=== PATIENT | female | born 1980 | race Caucasian/White ===

== ENCOUNTER 2017-12-16 14:14 | Day surgery (SDC) | payer MEDICAID ==
[~2017-12-16] VITALS: Ht 162.6 cm; Wt 86.2 kg
[2017-12-16] VITALS (9 sets, daily range): BP systolic 119–153; BP diastolic 87–99
[2017-12-16 15:16] LABS: BASOPHILS % (AUTO) 0.7 % (0.0-2.0); HEMATOCRIT 39.3 % (37.0-47.0); HEMOGLOBIN 13.2 G/DL (12.0-16.0); LYMPHOCYTES % (AUTO) 27.6 % (20.0-45.0); MEAN CORPUSCULAR VOLUME 93 FL (80-99); MONOCYTES % (AUTO) 6.6 % (1.0-10.0); NEUTROPHILS % (AUTO) 64.1 % (45.0-75.0); PLATELET COUNT 324 K/UL (150-450); RED BLOOD COUNT 4.24 M/UL (4.20-5.40); RED CELL DISTRIBUTION WIDTH 10.9 % (11.6-14.8); WHITE BLOOD COUNT 6.8 K/UL (4.8-10.8)
[2017-12-16 15:21] LABS: INR 0.9 (0.9-1.1)
[2017-12-16 15:22] LABS: ANION GAP 7 mmol/L (5-15); BLOOD UREA NITROGEN 16 mg/dL (7-18); CALCIUM 8.7 MG/DL (8.5-10.1); CARBON DIOXIDE 29 MMOL/L (21-32); CHLORIDE 103 MMOL/L (98-107); CREATININE 0.8 MG/DL (0.55-1.30); POTASSIUM 4.4 MMOL/L (3.5-5.1); SODIUM 139 MMOL/L (136-145)
[2017-12-16 15:27] LABS: ALANINE AMINOTRANSFERASE 43 U/L (12-78); ALBUMIN 3.6 G/DL (3.4-5.0); ALBUMIN/GLOBULIN RATIO 0.9 (1.0-2.7); ALKALINE PHOSPHATASE 69 U/L (46-116); ASPARTATE AMINO TRANSFERASE 22 U/L (15-37); BILIRUBIN,TOTAL 0.3 MG/DL (0.2-1.0)
--- NOTE | 2017-12-16 16:10 | Emergency Room Report ---
History of Present Illness General Chief Complaint: Pain Source: Patient Present Illness HPI 37-year-old female presents ED for evaluation of right wrist pain. Patient states she had her wrist was injured at a [employer] in October. States it is broken. Currently in a splint. Patient is noting tingling and weakness in the right wrist. Pain is throbbing, 8 out of 10, nonradiating. No other aggravating relieving factors. Denies any other associated symptoms Allergies: Coded Allergies: ACETAMINOPHEN (Verified Allergy, Unknown, 12/16/17) CODEINE (Verified Allergy, Unknown, 12/16/17) Patient History Past Medical History: none Past Surgical History: none Pertinent Family History: none Social History: Denies: smoking, alcohol use, drug use Last Menstrual Period: 11/28/17 Now: No Immunizations: UTD Reviewed Nursing Documentation: PMH: Agreed; PSxH: Agreed Nursing Documentation-PMH Past Medical History: No Stated History Review of Systems All Other Systems: negative except mentioned in HPI Physical Exam Vital Signs Date Time Temp Pulse Resp B/P (MAP) Pulse Ox O2 Delivery O2 Flow Rate FiO2 12/16/17 14:17 98.7 76 20 110/70 95 Room Air 98.8 Sp02 EP Interpretation: reviewed, normal General Appearance: no apparent distress, alert, GCS 15, non-toxic Head: normocephalic, atraumatic Eyes: bilateral eye normal inspection, bilateral eye PERRL ENT: hearing grossly normal, normal pharynx, no angioedema, normal voice Neck: full range of motion, supple/symm/no masses Respiratory: chest non-tender, lungs clear, normal breath sounds, speaking full sentences Cardiovascular #1: regular rate, rhythm, no edema Cardiovascular #2: 2+ carotid (R), 2+ carotid (L), 2+ radial (R), 2+ radial (L) , 2+ dorsalis pedis (R), 2+ dorsalis pedis (L) Gastrointestinal: normal bowel sounds, non tender, soft, non-distended, no guarding, no rebound Rectal: deferred Genitourinary: normal inspection, no CVA tenderness Musculoskeletal: back normal, gait/station normal, decreased range of motion, tender - R wrist Neurologic: alert, oriented x3, responsive, speech normal, motor weakness, sensory deficit - R wrist Psychiatric: judgement/insight normal, memory normal, mood/affect normal, no suicidal/homicidal ideation Reflexes: 3+ bicep (R), 3+ bicep (L), 3+ tricep (R), 3+ tricep (L), 3+ knee (R) , 3+ knee (L) Skin: normal color, no rash, warm/dry, well hydrated Lymphatic: no adenopathy Medical Decision Making Diagnostic Impression: Primary Impression: Wrist fracture Qualified Codes: S62.101B - Fracture of unspecified carpal bone, right wrist, initial encounter for open fracture Additional Impression: Arm paresthesia, right ER Course Hospital Course 37-year-old female presents ED with right wrist pain, tinglings and paresthesias. Status post wrist fracture in October Differential diagnoses include: fracture, dislocation, contusion Clinical course Patient placed on stretcher. After initial history and physical I discussed case with Dr. Quiros; given the motor weakness and paresthesias patient will require corrective surgery I ordered labs, EKG, CXR Labs reviewed-no leukocytosis, electrolytes okay, hemoglobin/hematocrit okay Chest x-ray- unremarkable EKG - NSR, no acute ischemic changes interpreted by me i. I feel this is a highly complex case requiring extensive working including EKG/Rhythm strip, Xray/CT/US, Blood/urine lab work, repeat exams while in ED, and administration of strong opiates/narcotics for pain control, admission to hospital or close patient follow up. Diagnosis - wrist fracture, arm parasthesias patient taken to OR Last Vital Signs Date Time Temp Pulse Resp B/P (MAP) Pulse Ox O2 Delivery O2 Flow Rate FiO2 12/16/17 15:00 98.8 68 20 119/93 96 Room Air 98.8 Status: improved Disposition: ADMITTED INPATIENT Condition: Serious Referrals: Maximiliano Quiros MD (PCP) Sloan Navarrete MD Dec 16, 2017 16:10
--- NOTE | 2017-12-16 16:25 | Diagnostic Imaging Report ---
Indication: Cough Technique: One view of the chest Comparison: none Findings: Lungs and pleural spaces are clear. Heart size is normal Impression: No acute process
[2017-12-16] MEDS ORDERED: Dexamethasone 4mg/ml vial ONE (16:40)
[2017-12-16] MEDS ORDERED: Sterile Water Irrig 1000ml IRRIG ONE (16:40)
[2017-12-16] MEDS ORDERED: Propofol 200mg/20ml IV ONE (16:40)
[2017-12-16] MEDS ORDERED: LR 1000ml ONE (16:40)
[2017-12-16] MEDS ORDERED: NS Irrig 1000ml ONE (16:40)
[2017-12-16] MEDS ORDERED: Lidocaine 1% MPF 10mg/ml 5ml ONE (16:40)
[2017-12-16] MEDS ORDERED: Ketorolac 30mg Inj ONE (16:40)
[2017-12-16] MEDS ORDERED: Zemuron 50mg/5ml Inj IV ONE (16:47)
[2017-12-16] MEDS ORDERED: Midazolam 2mg/2ml Inj ONE (16:51)
[2017-12-16] MEDS ORDERED: fentaNYL 100 mcg/2 mL IV ONE ×2 (16:51→17:13)
[2017-12-16] MEDS ORDERED: EPINEPHrine 1mg/1ml Amp ONE (16:52)
--- NOTE | 2017-12-16 16:56 | Operative Note - PDOC ---
Operative Note Operative Note Pre-op Diagnosis: right wrist fracture Procedure: orif right wrist Post-op Diagnosis: same as pre-op plus Anesthesia: regional, MAC Specimen: none Complications: none Condition: stable Estimated Blood Loss: none Implant(s) used?: Yes Maximiliano Quiros MD Dec 16, 2017 16:56
--- NOTE | 2017-12-16 16:56 | Pre-Procedure Note/Attestation ---
Pre-Procedure Note/Attestation Complete Prior to Procedure Planned Procedure: right Procedure Narrative: wrist orif Indications for Procedure Pre-Operative Diagnosis: right wrist fracture Attestation I attest that I discussed the nature of the procedure; its benefits; risks and complications; and alternatives (and the risks and benefits of such alternatives ), prior to the procedure, with the patient (or the patient's legal passenger service representative). I attest that, if there was a reasonable possibility of needing a blood transfusion, the patient (or the patient's legal passenger service representative) was given the [facility] standardized written summary, pursuant to the [place]ey [place] Blood Safety Act ([place] Health and Safety Code # 1645, as amended). I attest that I re-evaluated the patient just prior to the surgery and that there has been no change in the patient's H&P, except as documented below: Maximiliano Quiros MD Dec 16, 2017 16:55
[2017-12-16] MEDS ORDERED: HYDROmorphone 1mg/ml Carpuject SUBQ PRN (17:00)
[2017-12-16] MEDS ORDERED: Tylenol #3 tab (300mg/30mg) ORAL PRN (17:00)
[2017-12-16] MEDS ORDERED: D5 1/2NS 1,000 ML IV SCH (17:00)
[2017-12-16] MEDS ORDERED: Bupivacaine 0.25% Inj 30ml INJ ONE (17:13)
[2017-12-16] MEDS ORDERED: NS Irrig 1000ml IRRIG ONE (17:13)
[2017-12-16] MEDS ORDERED: LR 1000ml 1,000 ML IVLG SCH (17:33)
--- NOTE | 2017-12-16 17:33 | Anethesia Preoperative Eval ---
Anesthesia Pre-op PMH/ROS General Date of Evaluation: Dec 16, 2017 Time of Evaluation: 16:45 Anesthesiologist: ASA Score: ASA 2 Mallampati Score Class I : Soft palate, uvula, fauces, pillars visible Class II: Soft palate, uvula, fauces visible Class III: Soft palate, base of uvula visible Class IV: Only hard plate visible Mallampati Classification: Class II Surgeon: kavin Diagnosis: right wrist fracture Surgical Procedure: orif right wrist fractue Anesthesia History: none Social History: drug use - use in past, no brooks for several years Allergies: Coded Allergies: ACETAMINOPHEN (Verified Allergy, Unknown, 12/16/17) CODEINE (Verified Allergy, Unknown, 12/16/17) Past Medical History Cardiovascular: Denies: HTN, CAD, RI, valve dz, arrhythmia, other Pulmonary: Denies: asthma, COPD, RAMÍREZ, other Gastrointestinal/Genitourinary: Denies: GERD, CRI, ESRD, other Neurologic/Psychiatric: Denies: dementia, CVA, depression/anxiety, TIA, other Endocrine: Denies: DM, hypothyroidism, steroids, other HEENT: Denies: cataract (L), cataract (R), glaucoma, [place] (L), [place] (R), other Hematology/Immune: Denies: anemia, DVT, bleeding disorder, other Musculoskeletal/Integumentary: Reports: other - right wrist fracture PSxH Narrative: cholecystectomy Anesthesia Pre-op Phys. Exam Physician Exam Last Vital Signs Date Time Temp Pulse Resp B/P (MAP) Pulse Ox O2 Delivery O2 Flow Rate FiO2 12/16/17 16:39 98.8 68 20 119/93 96 Room Air 98.8 Constitutional: NAD Cardiovascular: RRR Respiratory: CTA Gastrointestinal: S/NT/ND Airway Exam Mallampati Score: Class II MO: full ROM: full Teeth: missing Dentures: no upper, no lower Anesthesia Pre-op A/P Labs Hematology Test 12/16/17 14:59 White Blood Count 6.8 K/UL (4.8-10.8) Red Blood Count 4.24 M/UL (4.20-5.40) Hemoglobin 13.2 G/DL (12.0-16.0) Hematocrit 39.3 % (37.0-47.0) Mean Corpuscular Volume 93 FL (80-99) Mean Corpuscular Hemoglobin 31.1 PG (27.0-31.0) H Mean Corpuscular Hemoglobin Concent 33.6 G/DL (32.0-36.0) Red Cell Distribution Width 10.9 % (11.6-14.8) L Platelet Count 324 K/UL (150-450) Mean Platelet Volume 6.0 FL (6.5-10.1) L Neutrophils (%) (Auto) 64.1 % (45.0-75.0) Lymphocytes (%) (Auto) 27.6 % (20.0-45.0) Monocytes (%) (Auto) 6.6 % (1.0-10.0) Eosinophils (%) (Auto) 1.0 % (0.0-3.0) Basophils (%) (Auto) 0.7 % (0.0-2.0) Coagulation Test 12/16/17 14:59 Prothrombin Time 10.0 SEC (9.30-11.50) Prothromb Time International Ratio 0.9 (0.9-1.1) Activated Partial Thromboplast Time 28 SEC (23-33) Chemistry Test 12/16/17 14:59 Sodium Level 139 MMOL/L (136-145) Potassium Level 4.4 MMOL/L (3.5-5.1) Chloride Level 103 MMOL/L (98-107) Carbon Dioxide Level 29 MMOL/L (21-32) Anion Gap 7 mmol/L (5-15) Blood Urea Nitrogen 16 mg/dL (7-18) Creatinine 0.8 MG/DL (0.55-1.30) Estimat Glomerular Filtration Rate > 60 mL/min (>60) Glucose Level 92 MG/DL (74-106) Calcium Level 8.7 MG/DL (8.5-10.1) Total Bilirubin 0.3 MG/DL (0.2-1.0) Aspartate Amino Transf (AST/SGOT) 22 U/L (15-37) Alanine Aminotransferase (ALT/SGPT) 43 U/L (12-78) Alkaline Phosphatase 69 U/L (46-116) Total Protein 7.5 G/DL (6.4-8.2) Albumin 3.6 G/DL (3.4-5.0) Globulin 3.9 g/dL Albumin/Globulin Ratio 0.9 (1.0-2.7) L Urine Test Test 12/16/17 14:59 Urine HCG, Qualitative Negative (NEGATIVE) Risk Assessment & Plan Assessment: asa 2 Plan: GA- LMA Status Change Before Surgery: No Pre-Antibiotics Drug: ancef 2 grams Given Within 1 Hr of Incision: Yes Time Given: 17:05 Margaret Ladd M.D. Dec 16, 2017 17:33
--- NOTE | 2017-12-16 17:37 | Immediate Post-Op Evaluation ---
Immediate Post-Op Evalulation Immediate Post-Op Evalulation Procedure: orif right wrist Date of Evaluation: Dec 16, 2017 Time of Evaluation: 18:20 IV Fluids: LR 600ml Blood Products: 0 Estimated Blood Loss: 5ml Urinary Output: 0 Blood Pressure Systolic: 153 Blood Pressure Diastolic: 97 Pulse Rate: 72 Respiratory Rate: 17 O2 Sat by Pulse Oximetry: 100 Temperature (Fahrenheit): 97.8 Pain Score (1-10): 0 Nausea: No Vomiting: No Complications none Patient Status: awake, patent, none Hydration Status: adequate Drug: ancef 2 grams Given Within 1 Hr of Incision: Yes Time Given: 17:05 Margaret Ladd M.D. Dec 16, 2017 17:37
--- NOTE | 2017-12-16 17:38 | 48 Hour Post Anesthesia Eval ---
Post Anesthesia Evaluation Procedure: orif right wrist Date of Evaluation: Dec 16, 2017 Time of Evaluation: 18:50 Blood Pressure Systolic: 146 0: 102 Pulse Rate: 62 Respiratory Rate: 16 Temperature (Fahrenheit): 97.8 O2 Sat by Pulse Oximetry: 100 Airway: patent Nausea: No Vomiting: No Pain Intensity: 5 Hydration Status: adequate Mental Status/LOC: patient returned to baseline Post-Anesthesia Complications: none Follow-up care needed: ready to discharge Margaret Ladd M.D. Dec 16, 2017 17:38
[2017-12-16] MEDS ORDERED: Bacitracin 50000 Units Vial ONE (17:41)
[2017-12-16] MEDS ORDERED: DiphenhydrAMINE 50mg/ml Inj IVP PRN (17:45)
[2017-12-16] MEDS ORDERED: fentaNYL 100 mcg/2 mL IV PRN (17:53)
[2017-12-16] MEDS ORDERED: Midazolam 2mg/2ml Inj IVP PRN (17:53)
[2017-12-16] MEDS ORDERED: Hydromorphone 0.5mg/0.5ml inj IVP PRN (17:53)
[2017-12-16] MEDS ORDERED: Norco 5mg/325mg tab ORAL PRN (19:35)
--- NOTE | 2017-12-16 19:45 | Diagnostic Imaging Report ---
EXAM: XR Right Wrist, 2 Views CLINICAL HISTORY: FX TECHNIQUE: Frontal and lateral intraoperative views of the right wrist. COMPARISON: No relevant prior studies available. FINDINGS/IMPRESSION: Volar plate and screw fixation of the distal right radius in satisfactory alignment
--- NOTE | 2017-12-16 21:30 | History and Physical Report ---
DATE OF ADMISSION: 12/16/2017 ORTHOPEDIC CONSULTATION ADMITTING PHYSICIAN: Maximiliano Quiros M.D. CHIEF COMPLAINT: Right wrist pain. HISTORY OF PRESENT ILLNESS: The patient is a pleasant female who had a right wrist fracture. She has had imaging studies, which showed a volar Metz unstable distal radius fracture. She was indicated for operative fixation. She subsequently presented to the [facility] where she was admitted to proceed with the surgery given that it has almost been 2 weeks since the initial injury. PAST MEDICAL HISTORY: Reviewed per intake chart. SURGICAL HISTORY: Reviewed per intake chart. MEDICATIONS: Reviewed per intake chart. PHYSICAL EXAMINATION: Shows some ecchymosis along the distal radius. Neurovascularly was normal. DIAGNOSTIC DATA: Imaging studies show volar Metz distal radius fracture. ASSESSMENT: Right volar Metz distal radius fracture. DISCUSSION: At this point, what I recommend is to proceed with open reduction and internal fixation of the right wrist. Risks, limitations, expectations, and complications of procedure were discussed in detail. All questions were addressed. She will be n.p.o. We will check preoperative laboratories and proceed with surgery. Maximiliano Quiros M.D. DR: Fanny JOB#: [id number] CC: NICKIE
--- NOTE | 2017-12-17 05:15 | Operative Note - Dictated ---
DATE OF OPERATION: 12/16/2017 PREOPERATIVE DIAGNOSIS: Right volar Metz intra-articular distal radius fracture. POSTOPERATIVE DIAGNOSIS: Right volar Metz intra-articular distal radius fracture. PROCEDURES: 1. Right wrist open reduction and internal fixation with screw fixation. 2. Osteotomy, distal radius (lunate fossa). SURGEON: Maximiliano Quiros M.D. ANESTHESIA: General. INDICATION FOR PROCEDURE: The patient is a pleasant female who sustained an injury to the right wrist. She was diagnosed with a displaced volar Metz fracture. Given the fact that it was an unstable injury, we attempted her to undergo open reduction and internal fixation. Risks, limitations, expectations, and complications of procedure were discussed in detail including the fact of continued pain, posttraumatic arthrosis, need for future surgery, risk of anesthesia, medical complications, etc. Specifically the fact that this was almost 2 to 3 weeks after the initial injury, the fact that it would be very difficult to anatomically reduce the displaced fragment, however, my best effort will be attempted. She had also understood that given the nature of the injury, sometimes the plates can cause irritation along the flexor tendon, so may require removal at a later date. DESCRIPTION OF PROCEDURE: An informed consent was obtained. The patient was taken to the operating room. We placed the patient under general anesthesia. Tourniquet was applied to the right proximal arm. The right arm was prepped and draped in sterile manner. The distal radial approach was performed. At this point, the fracture site along the lunate fossa of the distal radius was identified. A [place] was then placed into the fracture site to try to help reduce the fragment. Proximally fracture went into the shaft. There was some deformation of the bone with incomplete fracture. Therefore, osteotome was then used to carefully perform osteotomy of the distal radius. Once this was done, the lunate fossa portion of the distal radius was reduced with multiple clamps. A narrow Olga volar plate was selected. Given the obliquity of the fracture, it seemed like only one fragment or one screw was going to hold the fragment. Therefore, the plate was cinched down along the distal radial shaft. A screw was then used to further cinch down the fragment of the bone. It was one solid piece and the screw had significant purchase. Therefore, it was felt that this was adequate fixation. There was concern that further attempts to add additional fixation may compromise the fragment of bone. At this point, some bone graft was then placed along the area where the osteotomy was performed. Imaging showed relatively good recreation of the volar tilt on the lateral view, good placement of the hardware on the AP. The wound was copiously irrigated. Skin was approximated using 2-0 Vicryl suture and 3-0 Monocryl suture. Steri-Strips and posterior splint was applied. The patient was awoken and taken to recovery room with stable vital signs. ESTIMATED BLOOD LOSS: None. COMPLICATIONS: None. SPECIMENS: None. IMPLANTS: Include Olga volar plate. Maximiliano Quiros M.D. DR: Fanny JOB#: [id number] CC: NICKIE
--- NOTE | 2017-12-23 00:58 | Cardiology Report ---
APPROVED REPORT EKG Measurement Heart [id number] MD [id number] Sinus bradycardia Low voltage QRS RBBB Borderline ECG
== END 2017-12-16 19:50 | disposition home or self-care (01) ==
LOC: EMR 15:14 → SUR 16:26
DX: S52.571A Other intraarticular fracture of lower end of right radius, initial encounter for closed fracture (principal); Z88.6 Allergy status to analgesic agent; Z88.5 Allergy status to narcotic agent
CPT/HCPCS: 36415; 71045; 80053; 81025; 85025; 85610; 85730; 86850; 86870; 86900; 86901; 93005; 94003; 94150; J2250; J2405